=== PATIENT | male | born 1990 | race African-American/Black ===

== ENCOUNTER 2020-07-26 11:48 | Emergency (ER) | payer MEDICAID ==
[~2020-07-26] VITALS: Ht 170.2 cm; Wt 63.0 kg
[2020-07-26 11:59] VITALS: BP 113/62
== END 2020-07-26 13:53 | disposition home or self-care (01) ==
LOC: ER 11:48
DX: S62.657A Nondisplaced fracture of middle phalanx of left little finger, initial encounter for closed fracture (principal); J45.909 Unspecified asthma, uncomplicated; F12.10 Cannabis abuse, uncomplicated; Z88.6 Allergy status to analgesic agent; Y04.0XXA Assault by unarmed brawl or fight, initial encounter; Y93.89 Activity, other specified; Y92.89 Other specified places as the place of occurrence of the external cause
CPT/HCPCS: 29130; 73140; 99283

== ENCOUNTER 2020-09-23 01:42 | Emergency (ER) | payer MEDICAID ==
[~2020-09-23] VITALS: Ht 170.2 cm; Wt 63.0 kg
[2020-09-23 02:29] VITALS: BP 119/70
[2020-09-23] MEDS ORDERED: HYDROCODONE/ACETAMINOPHEN 5/325MG TABLET PO ONE (02:30)
[2020-09-23] MEDS ORDERED: BACITRACIN ZINC OINT UDPKT TOP ONE (02:30)
== END 2020-09-23 04:23 | disposition home or self-care (01) ==
LOC: ER 01:42
DX: S02.2XXA Fracture of nasal bones, initial encounter for closed fracture (principal); S40.012A Contusion of left shoulder, initial encounter; Y08.89XA Assault by other specified means, initial encounter; Y93.89 Activity, other specified; Y92.89 Other specified places as the place of occurrence of the external cause; Y99.8 Other external cause status; Z88.6 Allergy status to analgesic agent
CPT/HCPCS: 70486; 73000; 73030; 99284

== ENCOUNTER 2020-09-28 13:30 | Emergency (ER) | payer MEDICAID ==
[~2020-09-28] VITALS: Ht 170.2 cm; Wt 64.0 kg
[2020-09-28 13:57] VITALS: BP 93/53
[2020-09-28] MEDS ORDERED: ACETAMINOPHEN 325MG TABLET PO ONE (16:00)
== END 2020-09-28 17:38 | disposition home or self-care (01) ==
LOC: ER 13:30
DX: M25.512 Pain in left shoulder (principal); J45.909 Unspecified asthma, uncomplicated; Z76.0 Encounter for issue of repeat prescription; Z88.6 Allergy status to analgesic agent
CPT/HCPCS: 73030; 99283

== ENCOUNTER 2021-01-28 12:01 | Emergency (ER) | payer MEDICAID ==
[~2021-01-28] VITALS: Ht 165.1 cm; Wt 75.0 kg
[2021-01-28 12:07] VITALS: BP 115/66
[2021-01-28] MEDS ORDERED: HYDR-4001 MT (12:46)
== END 2021-01-28 13:00 | disposition home or self-care (01) ==
LOC: ER 12:01
DX: Z48.00 Encounter for change or removal of nonsurgical wound dressing (principal)
CPT/HCPCS: 99282